=== PATIENT | male | born 1990 | race Caucasian/White ===

== ENCOUNTER 2016-08-27 11:54 | Emergency (ER) | payer MEDICARE, MEDICAID ==
[~2016-08-27] VITALS: Ht 177.8 cm; Wt 107.0 kg
[~2016-08-27 11:54] MED LIST: LAMICTAL; LAMICTAL XR300 MG PO; MELATONIN0.3 MG PO; MINOCYCLIN100 MG/CAP PO; MIRALAX PA17 GM/Dose PO; MVI; NORCO 325 MG-51 TAB PO; ONFI 10MG PO; TRIAMCINOLONE A15 GM TP
[2016-08-27 12:03] VITALS: BP 129/84; PULSE 74; TEMP 97.3
[2016-08-27] MEDS ORDERED: LAMICTAL200 MG PO (12:35)
[2016-08-27] MEDS ORDERED: BACTRIM DS 8001 TAB PO (12:36)
[2016-08-27] MEDS ORDERED: CENTRUM1 TA1 PO (12:36)
== END 2016-08-27 13:30 | disposition home or self-care (01) ==
LOC: COL.ER 11:54
DX: S40.021A Contusion of right upper arm, initial encounter (principal); W22.8XXA Striking against or struck by other objects, initial encounter; G40.909 Epilepsy, unspecified, not intractable, without status epilepticus

== ENCOUNTER 2016-09-20 13:22 | Emergency (ER) | payer MEDICARE, MEDICAID ==
[~2016-09-20] VITALS: Ht 177.8 cm; Wt 104.5 kg
[~2016-09-20 13:22] MED LIST changes: +BACTRIM DS 8001 TAB PO; +CENTRUM1 TA1 PO; +LAMICTAL200 MG PO
[2016-09-20 13:24] VITALS: TEMP 98.1
[2016-09-20] MEDS ORDERED: NORCO 325 MG-51 TAB PO (16:38)
[2016-09-20 17:07] VITALS: BP 123/86; PULSE 87
== END 2016-09-20 17:15 | disposition home or self-care (01) ==
LOC: COL.ER 13:22
DX: S43.084A Other dislocation of right shoulder joint, initial encounter (principal); X58.XXXA Exposure to other specified factors, initial encounter; G40.909 Epilepsy, unspecified, not intractable, without status epilepticus; F84.0 Autistic disorder
CPT/HCPCS: J2704; J2765; J3010; J7040

== ENCOUNTER 2016-10-24 11:53 | Emergency (ER) | payer MEDICARE, MEDICAID ==
[~2016-10-24] VITALS: Ht 177.8 cm; Wt 106.8 kg
[2016-10-24 11:59] VITALS: TEMP 98.3
[2016-10-24] MEDS ORDERED: ULTRAM 50MG TAB50 MG PO (13:05)
[2016-10-24] MEDS ORDERED: LAMICTAL XR25 MG PO (13:31)
[2016-10-24] MEDS ORDERED: CLARITIN 1010 MG/TAB PO (13:33)
[2016-10-24] MEDS ORDERED: VITAMIN D 50,1.25 MG PO (13:34)
[2016-10-24 14:20] VITALS: BP 139/72; PULSE 88
== END 2016-10-24 14:20 | disposition home or self-care (01) ==
LOC: COL.ER 11:53
DX: M24.411 Recurrent dislocation, right shoulder (principal); G40.909 Epilepsy, unspecified, not intractable, without status epilepticus
CPT/HCPCS: J2704; J7030

== ENCOUNTER → 2016-11-29 13:15 | Outpatient (RCR) | payer MEDICARE, MEDICAID ==
[~2016-11-29 13:15] MED LIST changes: +CLARITIN 1010 MG/TAB PO; +LAMICTAL XR25 MG PO; +ULTRAM 50MG TAB50 MG PO; +VITAMIN D 50,1.25 MG PO; +ZOFRAN ODT4 MG PO
== END | disposition home or self-care (01) ==
LOC: WSPT 10-03 16:00 → WSC 10-23 15:00 → WSPT 11-15 13:15 → WSC 11-15 13:15 → WSPT 11-22 15:00 → WSC 11-22 15:00 → WSPT 13:15
DX: S43.084D Other dislocation of right shoulder joint, subsequent encounter (principal); X58.XXXD Exposure to other specified factors, subsequent encounter
CPT/HCPCS: G8984-GP; G8985-GP; G8986-GP

== ENCOUNTER 2016-12-04 11:39 | Emergency (ER) | payer MEDICARE, MEDICAID ==
[~2016-12-04] VITALS: Ht 177.8 cm; Wt 106.8 kg
[~2016-12-04 11:39] MED LIST changes: -ZOFRAN ODT4 MG PO
[2016-12-04] MEDS ORDERED: NORCO 325 MG-51 TAB PO (13:10)
[2016-12-04 13:51] VITALS: BP 118/81; PULSE 63; TEMP 98.5
[2016-12-05] MEDS ORDERED: ZOFRAN ODT4 MG PO (12:49)
== END 2016-12-04 14:03 | disposition home or self-care (01) ==
LOC: COL.ER 11:39
DX: S43.014A Anterior dislocation of right humerus, initial encounter (principal); R56.9 Unspecified convulsions
CPT/HCPCS: J2704

== ENCOUNTER 2016-12-05 09:30 | Emergency (ER) | payer MEDICARE, MEDICAID ==
[~2016-12-05] VITALS: Ht 177.8 cm; Wt 106.8 kg
[2016-12-05 09:35] VITALS: TEMP 98.2
[2016-12-05] MEDS ORDERED: ZOFRAN ODT4 MG PO (12:49)
[2016-12-05 13:30] VITALS: BP 126/97; PULSE 81
== END 2016-12-05 13:56 | disposition home or self-care (01) ==
LOC: COL.ER 09:30
DX: M24.411 Recurrent dislocation, right shoulder (principal); F84.0 Autistic disorder; G40.909 Epilepsy, unspecified, not intractable, without status epilepticus
CPT/HCPCS: J2250; J2405; J2704; J3010

== ENCOUNTER → 2016-12-13 | Outpatient (CLI) | payer MEDICARE, MEDICAID ==
[~2016-12-13] MED LIST changes: +ZOFRAN ODT4 MG PO
== END ==
LOC: COL.RAD 10:00
DX: M25.511 Pain in right shoulder (principal); M24.411 Recurrent dislocation, right shoulder; S43 Dislocation and sprain of joints and ligaments of shoulder girdle; S42.291A Other displaced fracture of upper end of right humerus, initial encounter for closed fracture; S43.431A Superior glenoid labrum lesion of right shoulder, initial encounter; S43.491A Other sprain of right shoulder joint, initial encounter; M25.411 Effusion, right shoulder

== ENCOUNTER 2017-04-02 10:30 | Outpatient (RCR) | payer MEDICARE, MEDICAID | END 2017-04-09 | LOC: WSPT | DX: Z98.890 Other specified postprocedural states (principal); F84.0 Autistic disorder | CPT/HCPCS: G8984-GP; G8985-GP ==

== ENCOUNTER 2017-04-04 19:11 | Emergency (ER) | payer MEDICARE, MEDICAID ==
[~2017-04-04] VITALS: Ht 177.8 cm; Wt 105.5 kg
[2017-04-04 19:28] VITALS: TEMP 97.7
[2017-04-05 00:05] VITALS: BP 124/79; PULSE 96
== END 2017-04-05 00:33 | disposition home or self-care (01) ==
LOC: COL.ER 19:11
DX: S43.014A Anterior dislocation of right humerus, initial encounter (principal); G40.909 Epilepsy, unspecified, not intractable, without status epilepticus; X58.XXXA Exposure to other specified factors, initial encounter
CPT/HCPCS: J1170; J2405; J7030

== ENCOUNTER 2017-07-04 13:15 | Outpatient (RCR) | payer MEDICARE, MEDICAID | END 2017-07-16 | disposition home or self-care (01) | LOC: WSPT | DX: Z47.89 Encounter for other orthopedic aftercare (principal); M24.411 Recurrent dislocation, right shoulder | CPT/HCPCS: G8984-GP; G8985-GP ==

== ENCOUNTER 2017-09-05 12:30 | Outpatient (RCR) | payer MEDICARE, MEDICAID | END 2017-10-16 | disposition home or self-care (01) | LOC: WSPT | DX: Z47.89 Encounter for other orthopedic aftercare (principal); Z98.890 Other specified postprocedural states | CPT/HCPCS: G8985-GP; G8986-GP ==

== ENCOUNTER 2018-12-23 08:00 | Outpatient (RCR) | payer MEDICARE, MEDICAID | END 2019-03-23 | disposition still patient (30) | LOC: WSST | DX: R48.2 Apraxia (principal) ==

== ENCOUNTER 2021-09-01 15:00 | Emergency (ER) | payer MEDICARE, MEDICAID ==
[~2021-09-01] VITALS: Ht 177.8 cm; Wt 81.8 kg
[2021-09-01 15:05] VITALS: TEMP 97.4
[2021-09-01 15:55] VITALS: BP 101/64; PULSE 84
== END 2021-09-01 15:58 ==
LOC: COL.ER 15:00
DX: S00.31XA Abrasion of nose, initial encounter (principal); G40.909 Epilepsy, unspecified, not intractable, without status epilepticus; F84.0 Autistic disorder; Z79.899 Other long term (current) drug therapy; W22.01XA Walked into wall, initial encounter; Y92.009 Unspecified place in unspecified non-institutional (private) residence as the place of occurrence of the external cause